=== PATIENT | female | born 1945 | race Caucasian/White ===

== ENCOUNTER 2019-11-04 15:21 | Emergency (ER) | payer MEDICARE, SELFPAY ==
--- NOTE | ~2019-11-04 | XR_ITS ---
XR hip LT min 2V 11/04/2019 15:53 Indication: Left hip pain after fall Procedure: 3 views left hip. Comparison: No prior studies for comparison. Findings: Mild osteoarthritis of the left hip. No fracture or traumatic malalignment. There are surgi moiz clips in the legs. No focal soft tissue abnormality. Impression: 1: Mild osteoarthritis of the left hip. Reviewed, dictated and finalized at location A. Impression: 1: Mild osteoarthritis of the left hip.
[2019-11-04 15:35] VITALS: BP 140/74; PULSE 61; RESP 16; TEMP 36.9; O2SAT 99
--- NOTE | 2019-11-04 15:36 | ED.GENADULT ---
HPI - General Adult General Chief complaint: Extremity Injury, Lower Stated complaint: fell hip pain Time Seen by Provider: 11/04/19 15:36 Source: patient and RN notes reviewed Mode of arrival: ambulatory Limitations: no limitations History of Present Illness HPI narrative: 74-year-old female presents with complaints of left hip pain for the past 11 days. Tylenol (2 tablets last this morning) with little relief. Lynne says she fell down several stairs hitting her left side and pain was improving until yesterday when she used her right hip to joar a door. The joar caused an increase of LT pain in the past 24 hours. Denies hitting head or loss of consciousness. Denies radiation of pain. No numbness or tingling or bleeding. No swelling. No loss of mobility. Exacerbating factor consist of being weight. Denies recent travel or long car rides. History of DVT or PE. No chest pain or dyspnea. Hysterectomy. Remains active. The patient reports she have not been diagnosed with COVID-19. The patient reports she is not waiting for the results of a COVID-19 lab test. The patient reports she do not have fever, chills, weakness, fatigue, myalgia, or facial swelling. The patient reports she do not have a new or worsening cough or shortness of breath. Denies chest pain. The patient reports she do not have any rhinorrhea, congestion, sore throat, nausea, vomiting, abdominal pain, and diarrhea. Tolerating po intake well. Denies concerns for COVID-19 or exposures been home with limited outdoor exposure except for essential household needs, work, and return home. At this time, patient is not suspected of having COVID-19. Some parts of this dictation were generated by voice recognition software and may contain typographical and/or grammatical inaccuracies. Related Data Home Medications Medication Instructions Recorded Confirmed Benadryl 11/04/19 aspirin 11/04/19 atorvastatin 11/04/19 citalopram mg 11/04/19 metoprolol succinate PO 11/04/19 Allergies Allergy/AdvReac Type Severity Reaction Status Date / Time levofloxacin Allergy Unknown Unknown Verified 12/01/17 17:21 Review of Systems Review of Systems: Narrative: CONSTITUTIONAL: Denies fever, chills, sweats. EYES: Denies visual changes, redness, discharge. ENT: Denies rhinorrhea, congestion, sore throat, otalgia. CARDIOVASCULAR: Denies chest pain, palpitations, edema. RESPIRATORY: Denies dyspnea, wheezing, cough. GASTROINTESTINAL: Denies abdominal pain, nausea, vomiting, diarrhea. GENITOURINARY: Denies dysuria, hematuria, abnormal discharge. SKIN: Denies rash or itching. MUSCULOSKELETAL: Denies acute back pain or myalgia. Complains of LT hip pain. NEUROLOGIC: Denies numbness or focal weakness. PSYCHIATRIC: Denies anxiety or depression. All other systems reviewed are negative, except as documented in HPI and below. [facility] Past Medical History Medical History (Updated 11/04/19 @ 16:47 by YARIEL Pacheco) Anxiety Breast cancer Coronary artery disease Heart disease Hypercholesteremia Hypertension Seasonal allergies Surgical History Surgical History (Updated 11/04/19 @ 16:45 by YARIEL Pacheco) History of bilateral mastectomy due to breast cancer History of cardiac catheterization History of heart bypass surgery Triple bypass History of hysterectomy History of reconstruction of both breasts History of vascular surgery Family History Family History (Updated 11/04/19 @ 15:53 by YARIEL Pacheco) Father , old age No problems noted. Mother Alzheimers disease Social History Social History (Updated 11/04/19 @ 15:54 by YARIEL Pacheco) Smoking status: Never smoker Tobacco type: cigarettes Second hand tobacco smoke exposure: No Alcohol intake: former Substance use: never Living arrangements: with family Occupation/Education: retired Gender identity (if verbalized by the pat
== END 2019-11-04 16:09 | disposition home or self-care (01) ==
PROVIDERS: Emergency Provider Nurse Practitioner Family
DX: M16.12 Unilateral primary osteoarthritis, left hip (principal); F41.9 Anxiety disorder, unspecified; Z85.3 Personal history of malignant neoplasm of breast; I25.10 Atherosclerotic heart disease of native coronary artery without angina pectoris; E78.00 Pure hypercholesterolemia, unspecified; I10 Essential (primary) hypertension; Z79.82 Long term (current) use of aspirin; Z90.13 Acquired absence of bilateral breasts and nipples
CPT/HCPCS: 73502; 99213; G0463

== ENCOUNTER 2020-12-21 10:16 | Emergency (ER) | payer MEDICARE, SELFPAY ==
--- NOTE | ~2020-12-21 | XR_ITS ---
EXAMINATION: XR foot RT min 3V EXAM DATE: 12/21/2020 10:39 INDICATION: Initial encounter following injury, with pain of the right foot. Bruising over the metata rsal bones. TECHNIQUE: Right foot dorsoplantar, lateral and oblique projections obtained and reviewed. Correlati on is made to right ankle examination 12/01/2017. FINDINGS: There are acute closed posttraumatic fractures at the necks of the right 2nd, 3rd and prob ably 4th metatarsal bones. These are essentially nondisplaced. There is overlying soft tissue swellin g. IMPRESSION: Acute right 2nd, 3rd and probably 4th metatarsal neck fractures. Reviewed, dictated and finalized at location B.
--- NOTE | 2020-12-21 10:23 | ED.LOWEXIN ---
HPI - Extremity Injury (Lower) General Chief Complaint: Extremity Injury, Lower Stated Complaint: Right foot Pain Time Seen by Provider: 12/21/20 10:23 Source: patient and RN notes reviewed History of Present Illness HPI Narrative: Patient is a 75-year-old female who presents the urgent care with complaints of right foot injury. Patient states that last night she tripped over her purse strings while getting out of the car and landed on the top of her right foot. Patient has been taking Tylenol for the pain. States that she has no pain except with weightbearing activity or curling of the toes. Denies of any other injuries from the fall. No other acute complaints. No acute distress noted. Patient aware of the plan of care. Some parts of this dictation were generated by voice recognition software and may contain typographical and/or grammatical inaccuracies. Related Data Home Medications Medication Instructions Recorded Confirmed aspirin 11/04/19 atorvastatin 11/04/19 citalopram mg 11/04/19 metoprolol succinate PO 11/04/19 Benadryl DAILY 12/21/20 Tums PRN 12/21/20 Tylenol 12/21/20 ergocalciferol (vitamin D2) 12/21/20 Allergies Allergy/AdvReac Type Severity Reaction Status Date / Time levofloxacin Allergy Unknown Unknown Verified 12/01/17 17:21 Review of Systems Review of Systems: CONSTITUTIONAL: Denies fever, chills, or sweats. EYES: Denies visual changes, redness, or discharge. ENT: Denies rhinorrhea, congestion, sore throat, or otalgia. CARDIOVASCULAR: Denies chest pain, palpitations, or edema. RESPIRATORY: Denies cough or dyspnea. GASTROINTESTINAL: Denies abdominal pain, nausea, vomiting, or diarrhea. GENITOURINARY: Denies dysuria or hematuria. SKIN: Denies rash or itching. MUSCULOSKELETAL: Reports of right foot pain and injury NEUROLOGIC: Denies headache, numbness, or weakness. All other systems reviewed are negative, except as documented in HPI. PENDING SALE TO [facility] Past Medical History Medical History (Updated 12/21/20 @ 11:07 by YARIEL Wilder) Anxiety Breast cancer Coronary artery disease Heart disease Hypercholesteremia Hypertension Seasonal allergies Surgical History Surgical History (Updated 11/04/19 @ 16:45 by YARIEL Pacheco) History of bilateral mastectomy due to breast cancer History of cardiac catheterization History of heart bypass surgery Triple bypass History of hysterectomy History of reconstruction of both breasts History of vascular surgery Family History Family History (Updated 11/04/19 @ 15:53 by YARIEL Pacheco) Father , old age No problems noted. Mother Alzheimers disease Social History Social History (Updated 11/04/19 @ 15:54 by YARIEL Pacheco) Smoking status: Never smoker Tobacco type: cigarettes Second hand tobacco smoke exposure: No Alcohol intake: former Substance use: never Gender identity (if verbalized by the patient): Female Comments At the time of my signature, I reviewed and agree with the nursing past medical, surgical, social, and family history. There is no relevant family history pertinent to the patient complaint. Exam Narrative: GENERAL: This is a well-nourished, well-developed patient, in no apparent distress. HEAD: normocephalic, atraumatic. EYES: PERRL. Sclera clear/white. Vision is grossly intact. EARS: External ears normal NOSE: External nose normal with no obvious nasal discharge, nares without redness, no rhinorrhea. THROAT: Mucous membranes moist NECK: Neck supple CARDIOVASCULAR: Regular rate and rhythm without murmurs, gallops, or rubs. RESPIRATORY: Clear to auscultation. Breath sounds equal bilaterally. No wheezes, rales, or rhonchi. SKIN: warm, intact with no suspicious lesions or rash, good texture and turgor. NEURO: awake, alert, and oriented to person, place and time. There were no obvious focal neurologic abnormalities. EXTREMITIES: Mild edema and no
[2020-12-21 10:28] VITALS: BP 106/87; PULSE 68; RESP 18; TEMP 36.3; O2SAT 100
--- NOTE | 2020-12-21 11:05 | PC.NURSE ---
stile ripsaw operator at bedside
== END 2020-12-21 11:16 | disposition home or self-care (01) ==
PROVIDERS: Emergency Provider Nurse Practitioner Family
DX: S92.504A Nondisplaced unspecified fracture of right lesser toe(s), initial encounter for closed fracture (principal); W18.09XA Striking against other object with subsequent fall, initial encounter; F41.9 Anxiety disorder, unspecified; Z85.3 Personal history of malignant neoplasm of breast; I25.10 Atherosclerotic heart disease of native coronary artery without angina pectoris; E78.00 Pure hypercholesterolemia, unspecified; I10 Essential (primary) hypertension; Z90.13 Acquired absence of bilateral breasts and nipples
CPT/HCPCS: 73630; 99213; G0463

== ENCOUNTER → 2021-07-03 08:57 | Outpatient (CLI) | payer MEDICARE, SELFPAY ==
--- NOTE | ~2021-07-03 | MR_ITS ---
EXAMINATION: MR knee LT wo con DATE: 07/03/2021 10:00 INDICATION: Chronic left knee pain TECHNIQUE: Magnetic resonance imaging (MRI) of the left knee was performed without intravenous contra st. Sequences included coronal PD-weighted FSE, coronal PD-weighted FS FSE, sagittal T2-weighted FSE , sagittal PD-weighted FS FSE and axial PD weighted fat saturated FSE. COMPARISON: None. FINDINGS: Medial compartment: There is medial extrusion of the medial meniscal body. There is a longitudinal horizontal tear involv ing the body and posterior horn of the medial meniscus. Full/near full-thickness cartilage loss with cortical irregularity and underlying edema-like increased marrow signal on the anterior weightbearing medial femoral condyle and the anteromedial margin of the medial tibial plateau. Progressively decre asing partial-thickness cartilage loss with scattered deep fissuring at the central and posterior azael ghtbearing medial femoral condyle. Additional partial thickness cartilage loss with relatively smooth chondral surface along the remainder of the medial tibial plateau. Lateral compartment: Lateral meniscus is normal. Deep chondral fissure without degenerative subchondral changes at the pos terior medial aspect of the lateral tibial plateau. Remaining cartilage in the lateral compartment is relatively preserved. Patellofemoral compartment: Deep chondral ulceration with underlying cortical irregularity and mild edema-like change along the p atellar apical ridge, inferior aspect of the medial and lateral patellar facets and inferior aspect o f the medial trochlea. Ligaments and tendons: Anterior and posterior cruciate ligaments are normal. Mild thickening and minimal increased signal of the proximal medial collateral ligament without surrounding edema consistent with mild scarring rela lobo to chronic sprain. The fibular collateral ligament complex is normal. The extensor mechanism is n ormal. The visualized medial and lateral hamstring tendons as well as the iliotibial band are normal. Fluid: Physiologic amount of fluid in the joint space. 11 x 6 x 6 mm loose body in the posterior recess of t he medial compartment along the medial side of the distal vertical component of the posterior cruciat e ligament. Moderate-sized Samuels's cyst extending 5.9 cm craniocaudally and measuring up to 1.5 x 1.0 cm in maximal orthogonal dimensions. Osseous/other: Bone alignment is normal. Couple small low signal intensity bone islands at the lateral tibial platea u and lateral femoral condyle. No fracture or pathologic marrow replacing process. IMPRESSION: 1. Longitudinal horizontal tear of the medial meniscus with medial extrusion of the meniscal body. 2. Tricompartmental osteoarthritis, severe with high-grade chondromalacia in the medial compartment, mild to moderate with additional high-grade chondral malacia in the patellofemoral compartment and mi ld with small region of moderate grade chondral malacia in the lateral compartment. 3. Moderate-sized Samuels's cyst. Reviewed, dictated and finalized at location A. [employer]ATORY TECHNICIAN APPRENTICE IMPRESSION: 1. Longitudinal horizontal tear of the medial meniscus with medial extrusion of the meniscal body. 2. Tricompartmental osteoarthritis, severe with high-grade chondromalacia in th e medial compartment, mild to moderate with additional high-grade chondral edward gabriel in the patellofemoral compartment and mild with small region of moderate gr bhargav chondral malacia in the lateral compartment. 3. Moderate-sized Samuels's cyst.
== END ==
PROVIDERS: PCP Family Medicine; Visit Provider Physician Assistant
DX: M71.22 Synovial cyst of popliteal space [Baker], left knee (principal); M17.12 Unilateral primary osteoarthritis, left knee; S83.242A Other tear of medial meniscus, current injury, left knee, initial encounter; X58.XXXA Exposure to other specified factors, initial encounter
CPT/HCPCS: 73721

== ENCOUNTER → 2021-12-13 12:34 | Outpatient (REF) | payer MEDICARE, SELFPAY | LOC: ANHLAB 12:34 | PROVIDERS: PCP Family Medicine; Visit Provider Surgery Plastic and Reconstructive Surgery | DX: C50.919 Malignant neoplasm of unspecified site of unspecified female breast (principal); Z98.82 Breast implant status | CPT/HCPCS: 88304 ==

== ENCOUNTER → 2022-01-14 14:51 | Outpatient (CLI) | payer MEDICARE, SELFPAY ==
--- NOTE | ~2022-01-14 | MR_ITS ---
EXAMINATION: MR brain/brain stem wo/w con DATE: 01/14/2022 16:00 INDICATION: Headache, syncope and collapse. TECHNIQUE: Magnetic resonance imaging (MRI) of the brain and brainstem was performed without and with 15 mL Multihance intravenous contrast. Sequences included sagittal and axial T1-weighted SE, axial d iffusion-weighted FS SE, axial T2*-weighted GRE, axial 3D SWAN, axial T2-weighted FLAIR, and axial T2 -weighted FSE. Postcontrast axial and coronal T1-weighted SE was obtained. Apparent diffusion coeffic ient (ADC) maps were created. COMPARISON: 12/14/2010 FINDINGS: There are no areas of restricted diffusion to suggest acute infarction. No intracranial hemorrhage. T here is a 9 x 5 mm enhancing dural based extra-axial mass anterior to the left frontal lobe which catalino sured 8 x 5 mm at the time of the prior MRI with appearance and stability most consistent with a meni ngioma. There are no other abnormally enhancing brain lesions identified. There are scattered areas o f nonspecific increased T2-weighted signal intensity in the cerebral white matter, predominantly invo lving the deep and periventricular white matter which is within normal limits for age. There are no i ntraparenchymal signal abnormalities seen on the other pulse sequences. The ventricles are symmetric and normal in size. There are no abnormal extra-axial fluid collections. Flow voids are seen in the c erebral arteries on the T2-weighted sequences consistent with their expected patency. Mild mucosal th ickening throughout the paranasal sinuses. Changes of bilateral intraocular lens replacement. There a re several small T1 and T2 hypointense posterior scalp nodules the largest measuring up to 11 mm . A single similar hypointense 5 mm posterior scalp nodule was present at the time of the prior study . IMPRESSION: 1. No acute intracranial process. 2. Negligible interval increase in size of a 9 x 5 mm extra-axial dural based enhancing nodule most c onsistent with a meningioma anterior to the left frontal lobe. 3. Moderate scattered nonspecific white matter T2 hyperintensity which is within normal limits for ag e and most likely sequela of chronic small vessel schema disease. Reviewed, dictated and finalized at location A. IMPRESSION: 1. No acute intracranial process. 2. Negligible interval increase in size of a 9 x 5 mm extra-axial dural based e nhancing nodule most consistent with a meningioma anterior to the left frontal lobe. 3. Moderate scattered nonspecific white matter T2 hyperintensity which is withi n normal limits for age and most likely sequela of chronic small vessel schema disease.
== END ==
PROVIDERS: PCP Family Medicine; Visit Provider Family Medicine
DX: R55 Syncope and collapse (principal); R51.9 Headache, unspecified; G89.29 Other chronic pain; D32.9 Benign neoplasm of meninges, unspecified; R93.0 Abnormal findings on diagnostic imaging of skull and head, not elsewhere classified
CPT/HCPCS: 70553; A9577